=== PATIENT | female | born 1985 | race Asian ===

== ENCOUNTER 2018-12-12 21:22 | Emergency (ER) | payer OTHER ==
[~2018-12-12] VITALS: Ht 154.9 cm; Wt 54.4 kg
[2018-12-12] MEDS ORDERED: ALLEGRA ALLERG180 MG PO (23:53)
[2018-12-12] MEDS ORDERED: Flonase 0.05% N16 GM (23:54)
[2018-12-13] MEDS ORDERED: Robaxin500 MG PO (01:38)
== END 2018-12-13 01:58 | disposition home or self-care (01) ==
LOC: ER 21:22
DX: S06.0X0A Concussion without loss of consciousness, initial encounter (principal); M54.2 Cervicalgia; Z91.02 Food additives allergy status; Z79.899 Other long term (current) drug therapy; W50.0XXA Accidental hit or strike by another person, initial encounter
CPT/HCPCS: 70450; 99283-25

== ENCOUNTER → 2019-11-03 | Outpatient (CLI) | payer OTHER ==
[~2019-11-03] MED LIST: ALLEGRA ALLERG180 MG PO; Flonase 0.05% N16 GM; Robaxin500 MG PO
[2019-11-05 15:07] LABS: HPV 16 Negative (Negative); HPV 18 Negative (Negative); HPV OTHER HR TYPES Negative (Negative)
== END | disposition home or self-care (01) ==
LOC: LAB 15:04 → LAB SHORT 15:04
PROVIDERS: Physician Assistant
DX: Z12.4 Encounter for screening for malignant neoplasm of cervix (principal)
CPT/HCPCS: 87624; G0145

== ENCOUNTER 2020-06-29 11:24 | Day surgery (SDC) | payer OTHER ==
[~2020-06-29] VITALS: Ht 154.9 cm; Wt 60.3 kg
--- NOTE | 2020-06-29 13:23 | NUR ---
06/29/20 1323 Annika Talbot 1 MG EPI ADDED TO EACH OF THE FIRST 3 BAGS OF LR FOR IRRIGATION.
== END 2020-06-29 15:10 | disposition home or self-care (01) ==
LOC: ORSCSDS 11:24
PROVIDERS: Orthopaedic Surgery
PROC: 0SQC4ZZ Repair Right Knee Joint, Percutaneous Endoscopic Approach (ICD-10-PCS; principal; 2020-06-29 12:45)
PROC: 0MNN4ZZ Release Right Knee Bursa and Ligament, Percutaneous Endoscopic Approach (ICD-10-PCS; principal; 2020-06-29 12:45)
PROC: 0SBC4ZZ Excision of Right Knee Joint, Percutaneous Endoscopic Approach (ICD-10-PCS; principal; 2020-06-29 12:45)
DX: M25.861 Other specified joint disorders, right knee (principal); M23.8X1 Other internal derangements of right knee; M94.261 Chondromalacia, right knee
CPT/HCPCS: A9270-GY; C1713; J0171; J0690; J1100; J1885; J2250; J2370; J2405; J2704; J2795; J3010; J7120

== ENCOUNTER → 2021-09-04 | Outpatient (CLI) | payer OTHER | END | disposition home or self-care (01) | LOC: LAB SHORT 16:42 → LAB 16:42 | DX: J02.9 Acute pharyngitis, unspecified (principal) | CPT/HCPCS: 87081 ==

== ENCOUNTER 2021-12-16 17:55 | Emergency (ER) | payer OTHER ==
[~2021-12-16] VITALS: Ht 154.9 cm; Wt 63.5 kg
[2021-12-16] MEDS ORDERED: AMOCLA875 PO (19:03)
== END 2021-12-16 19:39 | disposition home or self-care (01) ==
LOC: ER 17:55
DX: S61.451A Open bite of right hand, initial encounter (principal); W54.0XXA Bitten by dog, initial encounter; Z23 Encounter for immunization
CPT/HCPCS: 73110; 90714; A9270